=== PATIENT | male | born 1955 | race Caucasian/White ===

== ENCOUNTER 2017-04-19 12:00 | Observation (INO) | payer BC ==
--- NOTE | ~2017-04-19 | OP ---
Record Of Operation [facility] [address] [place]. [address] NAME: LITO CAMACHO : 51 STATUS : ADM Amy PAT#: [id number] AGE: 61 ADM/REG DATE : 04/19/17 MR#: [id number] REPORT SERV DATE: 04/20/17 DICTATED BY: ASHLEY MORTENSEN DATE: 04/20/17 REPORT STATUS : Draft TRANSCRIBED BY: MODL DATE: 04/20/17 DATE OF PROCEDURE: 04/19/2017 FLIGHT ENGINEER HELICOPTER: None. PREPROCEDURE DIAGNOSIS: Right lower extremity rest pain. POSTPROCEDURE DIAGNOSIS: 1. Critical stenosis in the above-knee popliteal, behind-knee popliteal. 2. 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 4. Critical stenosis in the peroneal artery and tibioperoneal trunk. PROCEDURES PERFORMED: 1. Ultrasound-guided access to the left common femoral artery. 2. Aortogram. 3. Right lower extremity arteriogram. 4. Atherectomy of the popliteal artery using a CSI 1.25 micro device. 5. Atherectomy of the peroneal artery and tibioperoneal trunk using the same device. 6. Angioplasty of the peroneal artery using a 2 mm balloon. 7. Angioplasty of the TP trunk and below-knee popliteal using a 4 mm balloon. 8. Angioplasty of the behind knee popliteal and above knee popliteal using a 5 mm balloon. 9. Retrograde pedal access at the dorsalis pedis artery. 10.Angioplasty of the anterior tibial artery using a tapered 3 x 2.5 x 210 balloon. ANESTHESIA: MAC and local. SPECIMENS: None. ESTIMATED BLOOD LOSS: Minimal. COMPLICATIONS: None. INDICATIONS: Lito Camacho is a 61-year-old white male with severe vascular disease, who presented to the ER with rest pain in his right leg that have been getting worse over the last 2 months. He had been getting worked up as an outpatient but was not getting relief in time and thus presented to the ER. He was found to have an DOUG, on an outside ultrasound, of 0.3 with severe occlusive disease at the SFA popliteal levels. He was offered intervention. Risks, benefits, and alternatives were extensively discussed with him and his . He understood and wished to proceed. OPERATIVE COURSE: The patient was brought to the operating room and placed in a supine position on the operating room table. The patient had MAC anesthetic without complications. Bilateral groins and right leg were prepped and draped in a sterile fashion. A time-out was performed, identified the correct patient, procedure, and site. We began by using ultrasound to identify the left common femoral artery. It was patent and free of Record Of Operation [facility] [id number] [place]. [address] NAME: LITO CAMACHO : 51 STATUS : ADM Amy PAT#: [id number] AGE: 61 ADM/REG DATE : 04/19/17 MR#: [id number] REPORT SERV DATE: 04/20/17 DICTATED BY: ASHLEY MORTENSEN DATE: 04/20/17 REPORT STATUS : Draft TRANSCRIBED BY: VENKATA DATE: 04/20/17 significant disease. We anesthetized the skin and accessed the artery under ultrasound guidance. A copy of this picture was placed on the chart for review. Once we had access, a wire was passed into the abdominal aorta. The needle was removed and we placed a 5-Macanese sheath over the wire. We passed the UF catheter, placed at the L1 vertebral level and performed aortography demonstrating patency of the aortoiliac segment without flow-limiting stenosis in the aorta, common or external iliac arteries. There were bilateral single patent renal arteries without significant stenosis identified. We then used the catheter and wire to cannulate the distal right external iliac artery. We then performed right lower extremity arteriogram which showed sluggish flow but patent common femoral and profunda femoris arteries. The SFA was patent down to the SFA popliteal junction after which there was a critical 95+ percent stenosis short and focal. After which the artery reconstituted and then there was another severe focal 80% stenosis behind the knee. The below-knee popliteal artery was diseased but patent. The tibial vessels were severely diseased with critical stenosis in the tibioperoneal trunk as well as the proximal peroneal artery. The peroneal artery was then patent down to the ankle where it terminated in its usual branches. The posterior tibial artery was never identified. The anterior tibial artery was patent and heavily diseased for about 3 to 4 cm after which it abruptly occluded into branches; it was not seen on this picture any further. IV heparin was given throughout the case. We sized up to a 6-Macanese up and over sheath which was parked at the right external iliac artery. We brought a wire and trailblazer catheter down to the distal SFA and performed more detailed arteriography. We were able to cross the popliteal occlusions with a wire. We then sized down to an 018 wire and 018 trailblazer catheter after which we were able to cannulate the peroneal artery and get wire into the distal peroneal artery. The wire was then switched out. After the Viper wire was in place, we brought up the CSI 1.25 micro device. We performed atherectomy on 2 low speed and 1 medium speed settings at the proximal peroneal artery, the tibioperoneal trunk, and both the lower popliteal lesions. The above knee popliteal lesion was not treated with atherectomy due to the ulceration and shelf-like nature of the plaque. Once CSI had been performed in all locations, we used a 2 mm balloon to perform angioplasty on the proximal peroneal artery; a 4 mm artery for the tibioperoneal trunk and popliteal artery; and then a 5 mm balloon angioplasty for the behind-knee popliteal artery as well as the above-knee popliteal ulceration. After this was performed, repeat angiogram demonstrated resolution of the popliteal stenosis. The peroneal artery was now patent without critical stenosis in the proximal segment. After performing these maneuvers, we identified a distal anterior tibial and dorsalis pedis artery that was not present on the prior runs. It was felt that an attempt should be made at opening the anterior tibial artery occlusion at this point due to the severe calf and foot pain. We used the Trailblazer catheter and V18 to gain access into the proximal portion of the anterior tibial artery. It was severely diseased and then after which it was occluded. We then sized down to the 018 Trailblazer and we were able to make some progress about half the distance down the anterior tibial artery occlusion. At this point, we could not make any further progress and could not connect from point A to point B. The decision was then made to perform retrograde pedal access. In an attempt to cross this lesion, we used the ultrasound and a hockey-stick probe to identify the dorsalis pedis artery. It was patent, compressible, and free of significant disease. We anesthetized the skin and then accessed the artery in a retrograde fashion using a pedal access kit. Once we had access, a wire was passed. We sized up to the pedal access sheath and injected 200 mcg of nitroglycerin to prevent arterial spasm. We then brought up a V18 wire and an 018 Trailblazer and we were Record Of Operation [address] [place]. [address] NAME: LITO CAMACHO : 51 STATUS : ADM Amy PAT#: [id number] AGE: 61 ADM/REG DATE : 04/19/17 MR#: [id number] REPORT SERV DATE: 04/20/17 DICTATED BY: ASHLEY MORTENSEN DATE: 04/20/17 REPORT STATUS : Draft TRANSCRIBED BY: MODL DATE: 04/20/17 able to direct the wire and catheter across the occlusion in a retrograde fashion up to our previous Trailblazer catheter that was coming from above. We were able to advance the V18 wire into that catheter and then all the way through the catheter and out the other side of the left groin. We now had the wire across the lesion in a body floss technique. We advanced the catheter from the left side of the patient. We removed the catheter from the right side of the foot. Once the catheter was down into the patent portion of the distal AT artery, the wire was removed and reinserted from the patient's left in a standard fashion so that it was in the proper direction. A Trailblazer catheter was then removed, leaving wire access across the anterior tibial artery occlusion. We then brought up a 2 mm balloon and performed angioplasty of the entire anterior tibial artery. We then removed this and brought up the 3 x 2.5 x 210 tapered balloon and performed 3 minute angioplasty of the entire anterior tibial artery. Repeat angiogram demonstrated widely patent anterior tibial artery without any residual stenosis. There was a small amount of spasm at the dorsalis pedis access site. We injected 200 mcg more of nitroglycerin. Satisfied with the endovascular intervention, wires and catheters were withdrawn. We wired out the 6-Macanese sheath and brought it up and over the aortic bifurcation to the left groin. Left common femoral arteriogram demonstrated good location of the sheath and good size of the artery. A StarClose was placed with good hemostasis and no complications. The right pedal access sheath was withdrawn and finger pressure was held for 15 minutes. A pressure dressing was then applied. The patient had biphasic Doppler signal at the dorsalis pedis artery. He had brisk capillary refill in the foot. He was then awakened and transferred to the recovery in stable condition. AMARJITH/EMILIANOL Ashley Mortensen MD / [id number] CC: MD Roni Aguilar
[~2017-04-19 12:00] MED LIST: ASA5GR PO; ASAB PO; CRANBERRY300 MG PO; FISH OIL1200 MG PO; GLUCOPHAGE1000 MG PO; GLUCXL10 PO; INVOKANA100 MG PO; JANUVIA100 MG PO; LOP25 PO; MULTIPLE VIT PO; NEXIUM40 PO; NORCO1 TA1 PO; PLAVIX PO; PRAVACHOL80 MG PO; PRILOSEC40 MG PO; VOLT25 PO
[2017-04-19 13:21] LABS: BASOPHILS 0.1 %; BASOPHILS ABSOLUTE 0.01 10/3/uL (0.0-0.16); EOSINOPHILS 1.7 %; EOSINOPHILS ABSOLUTE 0.13 10/3/uL (0.0-0.53); HEMOGLOBIN 11.9 g/dL (13.6-17.8); IMMATURE GRANULOCYTES 0.3 %; IMMATURE GRANULOCYTES ABSOLUTE 0.02 10/3/uL (0.0-0.11); LYMPHOCYTES 22.7 %; MEAN PLATELET VOLUME 10.2 fL (9.2-13.0); MONOCYTES ABSOLUTE 0.52 10/3/uL (0.21-1.20); NEUTROPHILS 68.2 %; PLATELET COUNT 165 10/3/uL (150-400); RBC DISTRIBUTION WIDTH 15.3 % (12.0-16.0); RED CELL COUNT 4.37 10/6/uL (4.7-6.1); WHITE BLOOD CELLS 7.5 10/3/uL (4.5-10.5)
[2017-04-19 13:22] LABS: HEMATOCRIT 37.5 % (40.0-51.0); MANUAL DIFF NO %; MEAN CORPUS HGB CONC 31.7 g/dL (32.0-36.0); MEAN CORPUSCULAR HEMOGLOB 27.2 pg (26.0-34.0); MEAN CORPUSCULAR VOLUME 85.8 fL (80-100)
[2017-04-19 13:29] LABS: PARTIAL THROMBO TIME 30.1 SEC (22.5-37.2)
[2017-04-19 13:40] LABS: A/G RATIO 1.4 (0.7-1.9); ALBUMIN 3.6 G/DL (3.5-5.0); ALKALINE PHOSPHATASE 73 U/L (45-117); BUN (BLOOD UREA NITROGEN) 16 MG/DL (6-23); CALCIUM, SERUM 8.8 MG/DL (8.5-10.4); CHLORIDE, SERUM 107 MMOL/L (96-112); CO2 (CARBON DIOXIDE) 25 MMOL/L (24-34); CREATININE 1.29 MG/DL (0.70-1.30); GFR AFRICAN AMERICAN 68 ML/MIN (>=60); GFR NON AFRICAN AMERICAN 59 ML/MIN (>=60); GLOBULIN 2.5 G/DL (2.5-4.1); GLUCOSE, SERUM 254 MG/DL (60-99); POTASSIUM, SERUM 4.3 MMOL/L (3.5-5.3); SGOT(AST) 23 U/L (5-40); SGPT(ALT) 26 U/L (5-65); SODIUM, SERUM 140 MMOL/L (135-148); TOTAL BILIRUBIN 0.6 MG/DL (0-1.2); TOTAL PROTEIN 6.1 G/DL (6.0-8.5)
[2017-04-19] MEDS ORDERED: INVOKANA300 MG PO (14:29)
[2017-04-19] MEDS ORDERED: THERGRANM PO (14:29)
[2017-04-19] MEDS ORDERED: FISH OIL1200 MG PO (14:29)
[2017-04-19] MEDS ORDERED: GLUCOPHAGE1000 MG PO (14:29)
[2017-04-19] MEDS ORDERED: GLUCOTRO10 PO (14:30)
[2017-04-19] MEDS ORDERED: PRILOSEC40 MG PO (14:30)
[2017-04-19] MEDS ORDERED: HALF81 PO (14:30)
[2017-04-19] MEDS ORDERED: JANUVIA100 MG PO (14:31)
[2017-04-19] MEDS ORDERED: LANTUS SC (14:31)
[2017-04-19] MEDS ORDERED: PLAVIX PO (14:31)
[2017-04-19] MEDS ORDERED: CRESTOR20 MG PO (14:31)
[2017-04-19] MEDS ORDERED: LOP25 PO (14:31)
[2017-04-19] MEDS ORDERED: ZYRTEC ALLGY10 MG PO (14:31)
[2017-04-19] MEDS ORDERED: NORCO1 TA2 PO (14:36)
[2017-04-20 04:29] LABS: BASOPHILS 0.1 %; BASOPHILS ABSOLUTE 0.01 10/3/uL (0.0-0.16); EOSINOPHILS 1.3 %; EOSINOPHILS ABSOLUTE 0.09 10/3/uL (0.0-0.53); HEMOGLOBIN 10.9 g/dL (13.6-17.8); IMMATURE GRANULOCYTES 0.1 %; IMMATURE GRANULOCYTES ABSOLUTE 0.01 10/3/uL (0.0-0.11); LYMPHOCYTES 25.1 %; LYMPHOCYTES ABSOLUTE 1.69 10/3/uL (0.67-4.30); MEAN CORPUS HGB CONC 32.4 g/dL (32.0-36.0); MEAN CORPUSCULAR HEMOGLOB 27.5 pg (26.0-34.0); MEAN CORPUSCULAR VOLUME 84.8 fL (80-100); MEAN PLATELET VOLUME 9.6 fL (9.2-13.0); MONOCYTES 5.8 %; MONOCYTES ABSOLUTE 0.39 10/3/uL (0.21-1.20); NEUTROPHILS 67.6 %; NEUTROPHILS ABSOLUTE 4.54 10/3/uL (2.02-8.40); PLATELET COUNT 124 10/3/uL (150-400); RBC DISTRIBUTION WIDTH 15.1 % (12.0-16.0); RED CELL COUNT 3.96 10/6/uL (4.7-6.1); WHITE BLOOD CELLS 6.7 10/3/uL (4.5-10.5)
[2017-04-20 04:30] LABS: HEMATOCRIT 33.6 % (40.0-51.0); MANUAL DIFF NO %
[2017-04-20 04:40] LABS: CALCIUM, SERUM 8.1 MG/DL (8.5-10.4); CHLORIDE, SERUM 109 MMOL/L (96-112); CO2 (CARBON DIOXIDE) 27 MMOL/L (24-34); CREATININE 0.94 MG/DL (0.70-1.30); GFR AFRICAN AMERICAN 100 ML/MIN (>=60); GFR NON AFRICAN AMERICAN 86 ML/MIN (>=60); SODIUM, SERUM 141 MMOL/L (135-148)
[2017-04-20 04:42] LABS: BUN (BLOOD UREA NITROGEN) 11 MG/DL (6-23); GLUCOSE, SERUM 93 MG/DL (60-99)
[2017-04-20] MEDS ORDERED: NORCO1 TA1 PO (14:57)
[2017-04-20] MEDS ORDERED: ASAB PO (14:58)
== END 2017-04-20 16:43 | disposition home or self-care (01) ==
LOC: ER 12:00 → 2SO 14:46
PROVIDERS: Emergency Medicine; Student in an Organized Health Care Education/Training Program
DX: I77.1 Stricture of artery (principal); I25.10 Atherosclerotic heart disease of native coronary artery without angina pectoris; Z95.1 Presence of aortocoronary bypass graft; I73.9 Peripheral vascular disease, unspecified; E11.9 Type 2 diabetes mellitus without complications; K21.9 Gastro-esophageal reflux disease without esophagitis; N20.0 Calculus of kidney; Z88.0 Allergy status to penicillin
CPT/HCPCS: 36140; 37225; 37229; 37232; 71010; 75625; 75710; 76937; 80048; 80053; 82962; 85025; 85610; 85730; 96365; 96375; 99284; A9270-GY; C1725; C1769; C1887; C1894; G0378; J0690; J1170; J2250; J2405; J3010; Q9967